=== PATIENT | male | born 1970 | race Asian ===

== ENCOUNTER 2021-12-06 00:34 | Observation (INO) | payer OTHER, SELFPAY ==
[2021-12-06] VITALS (10 sets, daily range): BP systolic 147–169; BP diastolic 88–111; PULSE 79–89; RESP 14–20; TEMP 30.6–36.4; O2SAT 95–98; BMI 29.1; BMI 29.0
--- NOTE | 2021-12-06 00:49 | DI.RAD.S_ITS ---
PROCEDURE: XR FOOT RT MIN 3V INDICATIONS: slip and fall, report bone was sticking out TECHNIQUE: 3 views of the foot were acquired. COMPARISON: [facility], CR, XR ANKLE RT MIN 3V, 12/06/2021, 1:08. FINDINGS: Bones: There are fractures of the distal tibia and fibula including articular extension of the tibial fractures and disruption of the ankle mortise. No fracture or dislocation in the foot. Soft tissues: There is periarticular soft tissue swelling at the ankle. IMPRESSION: 1. No fracture or dislocation in the foot. 2. Fractures of the distal tibia and fibula. Recommend correlation with concurrent study of the ankle. Dictated by: Andrade Camarena M.D. on 12/06/2021 at 1:27 Approved by: Andrade Camarena M.D. on 12/06/2021 at 1:29
--- NOTE | 2021-12-06 00:49 | DI.RAD.S_ITS ---
PROCEDURE: XR ANKLE RT MIN 3V INDICATIONS: slip and fall, report bone was sticking out TECHNIQUE: 3 views of the ankle were acquired. COMPARISON: None. FINDINGS: Bones: There is a mildly displaced fractures of the medial tibia through the base of the medial malleolus with associated involvement of the ankle mortise. There is irregularity of the posterior tibia distally which may also represent a posterior malleolus fracture. There is widening of the tibiotalar joint anteriorly. A mildly displaced spiral fracture of the distal fibular shaft is also present. Soft tissues: There is periarticular soft tissue swelling at the ankle. Achilles tendon appears intact. There are small calcifications inferior to the medial and lateral malleoli suggesting sequelae of prior avulsion injuries. IMPRESSION: 1. Intra-articular fractures of the distal tibia involving the medial and likely posterior malleoli with disruption of the ankle mortise. 2. Mildly displaced spiral fracture of the fibular shaft. Dictated by: Andrade Camarena M.D. on 12/06/2021 at 1:29 Approved by: Andrade Camarena M.D. on 12/06/2021 at 1:33
--- NOTE | 2021-12-06 01:05 | ED_ITS ---
HPI - Extremity Injury (Lower) General Chief Complaint: Extremity Injury, Lower Stated Complaint: POSSIBLE RT FOOT BROKEN Time Seen by Provider: 12/06/21 00:39 Mode of arrival: Ambulatory History of Present Illness HPI Narrative: 51-year-old male smoker without any significant or known chronic medical problems, takes no medications and has no allergies presents with a chief complaint of a work-related ankle injury. 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 He now has significant pain and obvious deformity to his ankle. He denies pain with palpation and attempts at ambulation. He denies any numbness, tingling or wea kness. He is otherwise well and free of complaint. He is Yoruba speaking and requires derrick boat leverman which has been used during triage and furthermore during his visit. He was brought by a friend Fermin ([phone]). He has no ability to go anywhere outside of the hospital, has no place to stay, no support and no ride. Furthermore he is unable to make it home to [place] Related Data Allergies Allergy/AdvReac Type Severity Reaction Status Date / Time No Known Drug Allergies Allergy Verified 12/06/21 01:18 Review of Systems Review of Systems Narrative: GENERAL: Denies chills, fatigue, malaise, fever, sweats. HEENT: Denies sinus pain, ear pain, sore throat, difficulty swallowing, dizziness. RESPIRATORY: Denies dyspnea, cough, wheezing, hemoptysis, sputum. CARDIOVASCULAR: Denies chest pain, palpitations, orthopnea, edema, GASTROINTESTINAL: Denies nausea, vomiting, abdominal pain, diarrhea, constipation, melena. : Denies dysuria, frequency, incontinence, hematuria, urinary retention. MUSCULOSKELETAL: See HPI SKIN: Denies rash, skin lesions, or other NEUROLOGIC: Denies weakness, headache, numbness, change in speech, confusion, seizures, incoordination. PSYCHIATRIC: No concerning psychosocial issues. 12 point review of systems is negative except for those stated above Patient History Social History Smoking Status: Current every day smoker Exam Narrative Exam Narrative: GENERAL: [51] year old patient appears stated age. Well-developed patient, in mild distress. HEAD: Atraumatic. Normocephalic. EYES: Pupils equal round and reactive. Extraocular motions intact. No scleral icterus. No injection or drainage. ENT: Nose without bleeding, purulent drainage. Throat without erythema, tonsillar hypertrophy or exudate. Airway patent. NECK: Trachea midline. Non tender CARDIOVASCULAR: Regular rate and rhythm without murmurs, gallops, or rubs. RESPIRATORY: Clear to auscultation. Breath sounds equal bilaterally. No wheezes, rales, or rhonchi. GASTROINTESTINAL: Abdomen soft, non-tender, nondistended. EXTREMITIES: Obvious deformity to the right ankle with pain and swelling, closed, isolated and neurovascularly intact BACK: Nontender without deformity or crepitance. No flank tenderness. NEURO: AOx3. SKIN: No rash or erythema of visible areas Initial Vital Signs Initial Vital Signs: Vital Signs Temperature 97.6 F 12/06/21 00:41 Pulse Rate 85 12/06/21 00:41 Respiratory Rate 14 12/06/21 00:41 Blood Pressure 169/103 H 12/06/21 00:41 Pulse Oximetry 98 12/06/21 00:41 Oxygen Delivery Method 12/06/21 00:41 Procedures Orthopedic Splinting/Casting Injury #1: Side: right Lower Extremity Injury Location: ankle Lower Extremity Immobilizer: posterior splint, stirrup splint and Duncan dressing Post splinting neuro exam: intact Post splinting vascular exam: intact Placed by: Nursing Course Orders Ordered: ED Orders 12/06/21 00:49 XR ankle RT min 3V Stat XR foot RT min 3V Stat 12/06/21 01:23 CT LE RT wo con Stat 12/06/21 04:30 COVID19 -Nasal RAPID/Pre-Proc Stat Complete Blood Count AUTO DIFF Stat Prothrombin Time INR Stat 12/06/21 04:34 Consult to FOUNDRY PATTERNMAKER - Wagon Driller Stat 12/06/21 05:02 Comprehensive Metabolic Panel Stat Sodium Chloride (Normal Saline 0.9%) 1,000 mls @ 125 mls/hr IV CONT SANDRA Discontinued Medications Hydrocodone Bitart/Acetaminophen (Hydrocodone/Acet 5/325 Prepack) 1 bottle MISC SEEINSTR ONE Stop: 12/06/21 01:13 Last Admin: 12/06/21 01:47 Dose: 1 bottle Documented By: MARGE Ondansetron HCl (Ondansetron 4 Mg Odt Prepack) 1 bottle MISC SEEINSTR ONE Stop: 12/06/21 01:13 Last Admin: 12/06/21 01:47 Dose: 1 bottle Documented By: KMW Consultations Consultation #1: Discussed with on-call orthopedist, given complexity of patient's presentation, will consult with patient in house but request patient be admitted to medicine for blood pressure management Vital Signs Vital signs: Vital Signs - 8 hr 12/06/21 00:41 Temperature 97.6 F Pulse Rate 85 Respiratory Rate 14 Blood Pressure 169/103 H Pulse Oximetry 98 Oxygen Delivery Method Room Air MDM - Extremity Injury (Lower) Lab Data Result diagrams: 12/06/21 04:30 12/06/21 05:02 Labs: Lab Results 12/06/21 12/06/21 12/06/21 Range/Units 04:30 04:30 04:30 WBC 12.8 H (4.5-11.0) X10^3/uL RBC 5.44 (4.5-5.9) X10^6/uL Hgb 16.8 (13.5-17.5) g/dL Hct 49.1 (41-53) % MCV 90.2 (80-100) fL MCH 30.9 (26-34) PG MCHC 34.3 (30-36) % RDW 13.2 (11.6-14.8) % Plt Count 223 (150-400) X10^3/uL Neut % (Auto) 75.0 (50-75) % Lymph % (Auto) 18.0 L (25-40) % Gilchrist % (Auto) 6.2 (3-14) % Eos % (Auto) 0.5 L (2-4) % Baso % (Auto) 0.3 (0-2) % Neut # (Auto) 9600 H (7672-4207) /uL Lymph # (Auto) 2300 (1746-6846) /uL Gilchrist # (Auto) 800 (0-900) /uL Eos # (Auto) 100 (0-450) /uL Baso # (Auto) 0 (0-100) /uL PT 11.5 (10.1-12.7) SECONDS INR 1.0 (0.9-1.3) Sodium (137-145) mmol/L Potassium (3.4-5.1) mmol/L Chloride (98-107) mmol/L Carbon Dioxide (22-32) mmol/L BUN (9-20) mg/dL Creatinine (0.66-1.25) mg/dL Estimated GFR (>60) mL/min BUN/Creatinine Ratio (6-22) Glucose (70-100) mg/dL Calcium (8.4-10.2) mg/dL Total Bilirubin (0.2-1.3) mg/dL AST (17-59) IU/L ALT (<50) IU/L Alkaline Phosphatase (38-126) U/L Total Protein (6.3-8.2) g/dL Albumin (3.5-5.0) g/dL Globulin (1.7-4.1) g/dL Albumin/Globulin Ratio (1.0-2.8) SARS-CoV-2 (PCR) Negative (Negative) 12/06/21 Range/Units 05:02 WBC (4.5-11.0) X10^3/uL RBC (4.5-5.9) X10^6/uL Hgb (13.5-17.5) g/dL Hct (41-53) % MCV (80-100) fL MCH (26-34) PG MCHC (30-36) % RDW (11.6-14.8) % Plt Count (150-400) X10^3/uL Neut % (Auto) (50-75) % Lymph % (Auto) (25-40) % Gilchrist % (Auto) (3-14) % Eos % (Auto) (2-4) % Baso % (Auto) (0-2) % Neut # (Auto) (9152-0145) /uL Lymph # (Auto) (0121-0092) /uL Gilchrist # (Auto) (0-900) /uL Eos # (Auto) (0-450) /uL Baso # (Auto) (0-100) /uL PT (10.1-12.7) SECONDS INR (0.9-1.3) Sodium 139 (137-145) mmol/L Potassium 4.1 (3.4-5.1) mmol/L Chloride 105 (98-107) mmol/L Carbon Dioxide 24 (22-32) mmol/L BUN 16 (9-20) mg/dL Creatinine 0.84 (0.66-1.25) mg/dL Estimated GFR > 60 (>60) mL/min BUN/Creatinine Ratio 19.0 (6-22) Glucose 116 H (70-100) mg/dL Calcium 9.0 (8.4-10.2) mg/dL Total Bilirubin 0.7 (0.2-1.3) mg/dL AST 33 (17-59) IU/L ALT 32 (<50) IU/L Alkaline Phosphatase 49 (38-126) U/L Total Protein 7.7 (6.3-8.2) g/dL Albumin 4.5 (3.5-5.0) g/dL Globulin 3.2 (1.7-4.1) g/dL Albumin/Globulin Ratio 1.4 (1.0-2.8) SARS-CoV-2 (PCR) (Negative) Imaging Data Extremity x-ray #1: Radiologist's Impression: [address] [address] XRay Report Signed Patient: SHANTE LONGOH MR#: [id number] : 1970 Acct:[id number] Age/Sex: 51 / M Date of Service: 12/06/21 Loc: ED Accession Number: [id number] ?? Procedure: XR ankle RT min 3V Ordering Provider: Jovan Hernandez D.O. PROCEDURE:? XR ANKLE RT MIN 3V ? INDICATIONS:? slip and fall, report bone was sticking out ? TECHNIQUE:? 3 views of the ankle were acquired.? ? COMPARISON:? None. ? FINDINGS:? ? Bones:? There is a mildly displaced fractures of the medial tibia through the base of the medial malleolus with associated involvement of the ankle mortise.? There is irregularity of the posterior tibia distally which may also represent a posterior malleolus fracture.? There is widening of the tibiotalar joint anteriorly.? A mildly displaced spiral fracture of the distal fibular shaft is also present. ? Soft tissues:? There is periarticular soft tissue swelling at the ankle.? Achilles tendon appears intact.? There are small calcifications inferior to the medial and lateral malleoli suggesting sequelae of prior avulsion injuries.? ? ? IMPRESSION:? ? 1. Intra-articular fractures of the distal tibia involving the medial and likely posterior malleoli with disruption of the ankle mortise. ? 2. Mildly displaced spiral fracture of the fibular shaft. ? Dictated by: Andrade Camarena M.D. on 12/06/2021 at 1:29 ? ? Approved by: Andrade Camarena M.D. on 12/06/2021 at 1:33 ? CT LE: Radiologist's Impression: Close Lower Extremity CT (Signed) Andrade Camarena - 12/06/21 Foot X-Ray (Signed) Andrade Camarena - 12/06/21 Ankle X-Ray (Signed) Andrade Camarena - 12/06/21 Launch?[place] [address] CT Scan Report Signed Patient: SHANTE LONGO MR#: [id number] : 1970 Acct:[id number] Age/Sex: 51 / M Date of Service: 12/06/21 Loc: ED Accession Number: [id number] ?? Procedure: CT LE RT wo con Ordering Provider: Jovan Hernandez D.O. PROCEDURE:? CT LE RT WO CON ? INDICATIONS:? obvious deformity ? TECHNIQUE:? Noncontrast 3 mm axial sections acquired from above the hip with to the bottom of the calcaneus, with coronal and sagittal reformats.? ? COMPARISON:? [facility]ed [facility], CR, XR ANKLE RT MIN 3V, 12/06/2021, 1:08. ? FINDINGS:? Image quality:? Excellent.? ? Bones:? There are fractures of the medial and posterior malleoli of the distal tibia with associated disruption of the ankle mortise.? There is slight lateral and posterior subluxation of the tibiotalar joint.? A mildly displaced spiral fracture of the distal fibular shaft is redemonstrated.? Widening of the distal tibiofibular syndesmosis is also noted.? There is a linear fracture fragment anterolaterally in the tibiotalar joint measuring up to approximately 1.0 cm.? There are small ossicles inferior to the medial and lateral malleoli consistent with small avulsion fractures of indeterminate acuity.? The remainder of the visualized right lower extremity appears intact. ? Soft tissues:? There is periarticular soft tissue swelling around the ankle with subcutaneous edema.? A tibiotalar joint effusion is present.? The visualized flexor, extensor, peroneal, and Achilles tendons appear intact. ? IMPRESSION:? ? 1. Fractures of the medial and posterior malleoli of the distal tibia with disruption of the ankle mortise and slight lateral posterior subluxation of the tibiotalar joint. ? 2. Mildly displaced spiral fracture of the distal fibular shaft. ? 3. Widening of the distal tibial fibular syndesmosis. ? 4. Linear fracture fragment anterolaterally in the tibiotalar joint.? ? Dictated by: Andrade Camarena M.D. on 12/06/2021 at 1:54 ? ? Approved by: Andrade Camarena M.D. on 12/06/2021 at 2:01 ? Discharge Plan Departure Patient Disposition: Admitted As Inpatient Clinical Impression: Closed trimalleolar fracture of ankle, Blood pressure elevated without history of HTN Admit Date/Time: 12/06/21 05:10 Admit Provider: Sharyn Sanchez
--- NOTE | 2021-12-06 01:23 | DI.CT.S_ITS ---
PROCEDURE: CT LE RT WO CON INDICATIONS: obvious deformity TECHNIQUE: Noncontrast 3 mm axial sections acquired from above the hip with to the bottom of the calcaneus, with coronal and sagittal reformats. COMPARISON: [facility], CR, XR ANKLE RT MIN 3V, 12/06/2021, 1:08. FINDINGS: Image quality: Excellent. Bones: There are fractures of the medial and posterior malleoli of the distal tibia with associated disruption of the ankle mortise. There is slight lateral and posterior subluxation of the tibiotalar joint. A mildly displaced spiral fracture of the distal fibular shaft is redemonstrated. Widening of the distal tibiofibular syndesmosis is also noted. There is a linear fracture fragment anterolaterally in the tibiotalar joint measuring up to approximately 1.0 cm. There are small ossicles inferior to the medial and lateral malleoli consistent with small avulsion fractures of indeterminate acuity. The remainder of the visualized right lower extremity appears intact. Soft tissues: There is periarticular soft tissue swelling around the ankle with subcutaneous edema. A tibiotalar joint effusion is present. The visualized flexor, extensor, peroneal, and Achilles tendons appear intact. IMPRESSION: 1. Fractures of the medial and posterior malleoli of the distal tibia with disruption of the ankle mortise and slight lateral posterior subluxation of the tibiotalar joint. 2. Mildly displaced spiral fracture of the distal fibular shaft. 3. Widening of the distal tibial fibular syndesmosis. 4. Linear fracture fragment anterolaterally in the tibiotalar joint. Dictated by: Andrade Camarena M.D. on 12/06/2021 at 1:54 Approved by: Andrade Camarena M.D. on 12/06/2021 at 2:01
--- NOTE | 2021-12-06 01:24 | PC.NURSE ---
Triage/initial assessment assisted by language line retirement manager [id number]
[2021-12-06] MEDS: HYDROCODONE/ACET 5/325 PREPACK 1 BOTTLE MISC (01:47)
[2021-12-06] MEDS: ONDANSETRON 4 MG ODT PREPACK 1 BOTTLE MISC (01:47)
[2021-12-06 04:52] LABS: Add Manual Diff / Slide Review NO; Basophils Absolute Auto 0 /uL (0-100); Basophils Percent Auto 0.3 % (0-2); Eosinophils Absolute Auto 100 /uL (0-450); Eosinophils Percent Auto 0.5 % (2-4); Hematocrit 49.1 % (41-53); Hemoglobin 16.8 g/dL (13.5-17.5); Lymphocytes Absolute Auto 2300 /uL (1100-4500); Mean Corpuscular HGB Conc 34.3 % (30-36); Mean Corpuscular Hemoglobin 30.9 PG (26-34); Mean Corpuscular Volume 90.2 fL (80-100); Monocytes Absolute Auto 800 /uL (0-900); Monocytes Percent Auto 6.2 % (3-14); Neutrophils Absolute Auto 9600 /uL (1500-7000); Platelet Count 223 X10^3/uL (150-400); Red Blood Cell Count 5.44 X10^6/uL (4.5-5.9); Red Cell Distribution Width 13.2 % (11.6-14.8); White Blood Cell Count 12.8 X10^3/uL (4.5-11.0)
[2021-12-06 04:53] LABS: Prothrombin Time 11.5 SECONDS (10.1-12.7)
--- NOTE | 2021-12-06 04:58 | P.CONS_ITS ---
History of Present Illness Consult details Chief complaint: POSSIBLE RT FOOT BROKEN Reason for consult: right ankle fracture Requesting provider: Jovan Hernandez Narrative: 51 yo M hx, Austrian speaking male. 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 Austrian livestock dealer used. No family/ contacts in area, lives/works [place]. This is a [place] compensation industrial injury. found to have displaced R trimal ankle fx. unable to be safely discharged. Complex social situation as detailed in ER note. admitted to Internal medicine for HTN and will require case management help to sort of next steps, options for local treatment vs transport home to [place]. splinted by ER, xR and CT scan completed-- trimal ankle fx Meds Home Medications and Allergies Home Medications Medication Instructions Recorded Confirmed Type acetaminophen 500 mg tablet 650 mg PO Q6HR pain 12/06/21 12/06/21 History (Acetaminophen Pain Relief) enoxaparin 40 mg/0.4 mL 40 mg (0.4 mL) SUBCUT DAILY 10 12/06/21 Rx subcutaneous syringe (Lovenox) days #4 mL hydrocodone 10 mg-acetaminophen 1 tab PO Q4HR PRN Pain, Severe 12/06/21 Rx 325 mg tablet (7-10) #30 tabs Allergies Allergy/AdvReac Type Severity Reaction Status Date / Time No Known Drug Allergies Allergy Verified 12/06/21 01:18 Exam Vital Signs (past 8 hours): - 12/06/21 00:41 Temperature 97.6 F Pulse Rate 85 Respiratory Rate 14 Blood Pressure 169/103 H Pulse Oximetry 98 Oxygen Delivery Method Room Air Oxygen Delivery Method Room Air Objective Imaging ct scan ankle: My impression: displaced trimal ankle fractrue Radiologist's impression: IMPRESSION:? ? 1. Fractures of the medial and posterior malleoli of the distal tibia with disruption of the ankle mortise and slight lateral posterior subluxation of the tibiotalar joint. ? 2. Mildly displaced spiral fracture of the distal fibular shaft. ? 3. Widening of the distal tibial fibular syndesmosis. ? 4. Linear fracture fragment anterolaterally in the tibiotalar joint.? ? Dictated by: Andrade Camarena M.D. on 12/06/2021 at 1:54 Labs Result Diagrams: 12/06/21 04:30 12/06/21 05:02 Labs: Laboratory Results - last 24 hr 12/06/21 12/06/21 04:30 04:30 WBC 12.8 H RBC 5.44 Hgb 16.8 Hct 49.1 MCV 90.2 MCH 30.9 MCHC 34.3 RDW 13.2 Plt Count 223 Neut % (Auto) 75.0 Lymph % (Auto) 18.0 L [place] % (Auto) 6.2 Eos % (Auto) 0.5 L Baso % (Auto) 0.3 Neut # (Auto) 9600 H Lymph # (Auto) 2300 [place] # (Auto) 800 Eos # (Auto) 100 Baso # (Auto) 0 PT 11.5 INR 1.0 PFSH Medical History (Updated 12/06/21 @ 06:41 by [facility]) Tobacco abuse Surgical History H/O hand surgery Tobacco & Substance Use Smoking Status: Current every day smoker Assessment & Plan Assessment and plan (1) Closed trimalleolar fracture of ankle: Status: Acute Plan right trimalleolar ankle fracture. 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 He is Austrian speaking. does not live locally, no family or friends in area. requires admission for severe ankle fracture and complex social situation--out of state-and no caregivers available. He will need help with care management to sort out contacting the employer and starting [place] workers compensation claim. right ankle will need surgery. this can be done best in the next 2 weeks and can be done in [place] or back in [place] if the [place] workers compensation/employers insurance arranges travel. Patient will be nonweightbearing? on the right ankle. Regardless of if surgery is in [place], this patient will need care (help) and transport back home to [place] (before or after a surgery). He will need to be toe touchdown weightbearing for approx 6 weeks after a surgery and cannot drive during that time.? once we know more about the social situation- and options for return to [place] can discuss if preference for surgery in [place] vs [place]. --if surgery in [place] -- then will need to find an orthopedic surgeon in [place] to follow locally with. --UPdated by Dr. Mandel-- family to drive [facility] back to [place] for care-- recommending SQ lovenox for DVT prophylaxis. Pt will need to see orthopedic surgeon in [place] for surgical fixation of his ankle fracture. COVID-19 COVID-19 status: Negative Time Spent With Patient Time with patient: less than 30 minutes Critical Care time: I spent a total of [] minutes of critical care time on this patient's care today; this time is exclusive of procedural time.
[2021-12-06 05:27] LABS: Alanine Aminotransferase 32 IU/L (<50); Albumin 4.5 g/dL (3.5-5.0); Albumin Globulin Ratio 1.4 (1.0-2.8); Alkaline Phosphatase 49 U/L (38-126); Aspartate Aminotransferase 33 IU/L (17-59); Bilirubin Total 0.7 mg/dL (0.2-1.3); Blood Urea Nitrogen 16 mg/dL (9-20); Carbon Dioxide 24 mmol/L (22-32); Chloride 105 mmol/L (98-107); Estimated Glomerular Filt Rate > 60 mL/min (>60); Globulin 3.2 g/dL (1.7-4.1); Glucose 116 mg/dL (70-100); HEMOLYSIS < 15 (0-50); Potassium 4.1 mmol/L (3.4-5.1); Sodium 139 mmol/L (137-145); Total Protein 7.7 g/dL (6.3-8.2)
[2021-12-06 05:42] LABS: COVID19 -Nasal RAPID Negative (Negative)
[2021-12-06] MEDS: ONDANSETRON 4 MG ODT PO (06:24)
[2021-12-06] MEDS: ACETAMINOPHEN 325 MG TABLET 650 MG PO (06:24)
[2021-12-06] MEDS: KETOROLAC 30 MG/ML VIAL IV (06:24)
[2021-12-06] MEDS: HYDROMORPHONE 0.5 MG INJ IV (06:26)
[2021-12-06 06:29] LABS: NT-proBNP (BNP-Adult 18+) 20 pg/mL (<125)
[2021-12-06] MEDS: SODIUM CHLORIDE 0.9% 1,000 ML 75 ML IV (06:29)
--- NOTE | 2021-12-06 06:31 | P.HP_ITS ---
History of Present Illness History of Present Illness Date Patient Seen: 12/06/21 Time Patient Seen: 06:04 Chief complaint: POSSIBLE RT FOOT BROKEN Narrative: Addy Fatima is a 51-year-old male smoker without any significant or known chronic medical problems, takes no medications and has no allergies presents with a chief complaint of a work-related ankle injury.? 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 He now has significant pain and obvious deformity to his ankle.? He denies pain with palpation and attempts at ambulation.? He denies any numbness, tingling or weakness.? He is otherwise well and free of complaint.? He is Malaysian speaking and requires water service supervisor which has been used during triage and furthermore during his visit.? He was brought by a friend Fermin ([phone]).? He has no ability to go anywhere outside of the hospital, has no place to stay, no support and no ride.? Furthermore he is unable to make it home to [place]. Patient states that he has no medical history, takes no medications, no family history, no prior surgeries. Patient denies chest pain, shortness of breath, abdominal pain, nausea, vomiting, diarrhea, chills, fever, upper respiratory symptoms, COVID infection, head injury or trauma. Patient is having significant right lower extremity pain. Upon admit patient is afebrile temp 97.6, hypertensive urgency BP 169/103, HR 85, O2 saturation 98% on room air. Id WBC 12.8 with a left shift neutrophils 9600, the rest of patient's CBC and CMP are unremarkable. Patient's x-rays of lower extremity right foot and right ankle demonstrate a right trimalleolar ankle fracture with distal fibula fracture. Patient to be admitted for right lower extremity fractures, and hypertensive urgency without the diagnosis of hypertension. Patient History Medical History (Updated 12/06/21 @ 06:41 by BRIAN Gauthier) Tobacco abuse Surgical History H/O hand surgery Family & Social History Safety & Behavioral: Feels Safe in Current Yes Environment Tobacco & Substance use: Smoking Status Current every day smoker alcohol intake frequency 0-2 drinks per day Substance Use Type does not use Meds Home Medications and Allergies Allergies Allergy/AdvReac Type Severity Reaction Status Date / Time No Known Drug Allergies Allergy Verified 12/06/21 01:18 Review of Systems Review of Systems Narrative: All 12 point systems reviewed with the patient and are negative except otherwise documented. Exam Vital Signs (past 8 hours): - 12/06/21 00:41 12/06/21 06:04 12/06/21 06:07 Temperature 97.6 F 97.5 F L Pulse Rate 85 81 Respiratory Rate 14 20 Blood Pressure 169/103 H 169/91 H 169/111 H Pulse Oximetry 98 96 Oxygen Delivery Method Room Air Oxygen Delivery Method Room Air Narrative Exam Narrative: GENERAL: [51] year old patient appears stated age. Well-developed patient, in mild distress. HEAD: Atraumatic. Normocephalic. EYES: Pupils equal round and reactive. Extraocular motions intact. No scleral icterus. No injection or drainage. ENT: Nose without bleeding, purulent drainage. Throat without erythema, tonsillar hypertrophy or exudate. Airway patent. NECK: Trachea midline. Non tender CARDIOVASCULAR: Regular rate and rhythm without murmurs, gallops, or rubs. RESPIRATORY: Clear to auscultation. Breath sounds equal bilaterally. No wheezes, rales, or rhonchi.? GASTROINTESTINAL: Abdomen soft, non-tender, nondistended. EXTREMITIES:? Obvious deformity to the right ankle with pain and swelling, closed, isolated and neurovascularly intact BACK: Nontender without deformity or crepitance. No flank tenderness. NEURO: AOx3. SKIN: No rash or erythema of visible areas Objective Labs Result Diagrams: 12/06/21 04:30 12/06/21 05:02 Labs: Laboratory Results - last 24 hr 12/06/21 12/06/21 12/06/21 04:30 04:30 04:30 WBC 12.8 H RBC 5.44 Hgb 16.8 Hct 49.1 MCV 90.2 MCH 30.9 MCHC 34.3 RDW 13.2 Plt Count 223 Neut % (Auto) 75.0 Lymph % (Auto) 18.0 L [place] % (Auto) 6.2 Eos % (Auto) 0.5 L Baso % (Auto) 0.3 Neut # (Auto) 9600 H Lymph # (Auto) 2300 [place] # (Auto) 800 Eos # (Auto) 100 Baso # (Auto) 0 PT 11.5 INR 1.0 Sodium Potassium Chloride Carbon Dioxide BUN Creatinine Estimated GFR BUN/Creatinine Ratio Glucose Calcium Total Bilirubin AST ALT Alkaline Phosphatase NT-Pro-B Natriuret Pep Total Protein Albumin Globulin Albumin/Globulin Ratio SARS-CoV-2 (PCR) Negative 12/06/21 12/06/21 05:02 05:48 WBC RBC Hgb Hct MCV MCH MCHC RDW Plt Count Neut % (Auto) Lymph % (Auto) [place] % (Auto) Eos % (Auto) Baso % (Auto) Neut # (Auto) Lymph # (Auto) [place] # (Auto) Eos # (Auto) Baso # (Auto) PT INR Sodium 139 Potassium 4.1 Chloride 105 Carbon Dioxide 24 BUN 16 Creatinine 0.84 Estimated GFR > 60 BUN/Creatinine Ratio 19.0 Glucose 116 H Calcium 9.0 Total Bilirubin 0.7 AST 33 ALT 32 Alkaline Phosphatase 49 NT-Pro-B Natriuret Pep 20 Total Protein 7.7 Albumin 4.5 Globulin 3.2 Albumin/Globulin Ratio 1.4 SARS-CoV-2 (PCR) Assessment & Plan Assessment & Plan narrative: Addy Fatima is a 51-year-old male smoker without any significant or known chronic medical problems, takes no medications and has no allergies, He is Malaysian speaking and requires water service supervisor during his visit.? He was brought by a friend Fermin ([phone]).? He has no ability to go anywhere outside of the hospital, has no place to stay, no support and no ride.? Furthermore he is unable to make it home to [place]. 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 Today's goal is for social work and SPECIALIST MANAGERS to determine if the patient can be seen and treated here surgically or needs to be return to [place] and the logistics required. Dr. Antony is consulting and will perf orm the surgery here if it is deemed appropriate. 1.Right trimalleolar ankle fracture, acute, present on admission -to be managed by Dr. Worrell -patient requires intensive social work and SPECIALIST MANAGERS consult see Dr. Worrell ease notes regarding complications Per Dr. Lopez: right trimalleolar ankle fracture. 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 He is Malaysian speaking. does not live locally, no family or friends in area. requires admission for severe ankle fracture and complex social situation--out of state-and no caregivers available. He will need help with care management to sort out contacting the employer and starting [place] workers compensation claim. right ankle will need surgery. this can be done best in the next 2 weeks and can be done in [place] or back in [place] if the [place] workers compensation/employers insurance arranges travel. Patient will be nonweightbearing? on the right ankle. Regardless of if surgery is in [place], this patietn will need care (help) and transport back home to [place] (before or after a surgery). He will need to be toe touchdown weightbearing for approx 6 weeks after a surgery and cannot drive during that time.? once we know more about the social situation- and options for return to [place] can discuss if preference for surgery in [place] vs [place]. --if surgery in [place] -- then will need to find an orthopedic surgeon in [place] to follow locally with. -ordered SPECIALIST MANAGERS and social Service consult -pain management, elevate extremity, ice prn, splint applied in ED 2. Hypertensive urgency without the diagnosis of hypertension, acute, present on admission -hypertension likely secondary to injury and tobacco abuse -will initiate lisinopril 10 mg-and evaluate response 3. Overweight as evidence by BMI of 29, acute on chronic, present on admission -dietary consult to be considered for nutritional and lifestyle weight loss consultation 4. Tobacco abuse, acute on chronic, present on admission -patient education regarding tobacco cessation Code status:Full Surrogate decision maker: Spouse Kenn HERNANDEZ PCR:Negative DVT/VTE prophylaxis: Lovenox and SCD on left only Disposition: I have utilized all available immediate resources to obtain, update, or review the patient's current medications. Phone water service supervisor was used during admit interview. I confirmed that the patient's advanced care plan is present, Code status is documented and/or surrogate decision maker is listed in the patient's medical record. Time Spent With Patient Critical Care time: I spent a total of [] minutes of critical care time on this patient's care today; this time is exclusive of procedural time.
[2021-12-06] MEDS: HYDROCODONE/ACET 10/325 TABLET 1 TAB PO (07:40)
--- NOTE | 2021-12-06 09:00 | DI.RAD.S_ITS ---
PROCEDURE: XR CHEST 1V INDICATIONS: r/o infection-cardiopulmonary process TECHNIQUE: One view of the chest was acquired. COMPARISON: None. FINDINGS: Surgical changes and devices: None. Lungs and pleura: Lungs are clear. No pleural effusions or pneumothorax. Mediastinum: Mediastinal contours appear normal. Heart size is normal. Bones and chest wall: No suspicious bony lesions. Overlying soft tissues appear unremarkable. IMPRESSION: No acute cardiopulmonary disease process. Dictated by: Fay Santamaria MD, PhD on 12/06/2021 at 9:06 Approved by: Fay Santamaria MD, PhD on 12/06/2021 at 9:06
[2021-12-06] MEDS: lisinopriL 10 MG TABLET PO (10:17)
[2021-12-06] MEDS: ENOXAPARIN 40 MG/0.4 ML SYRINGE SUBCUT (10:18)
--- NOTE | 2021-12-06 11:43 | P.DS_ITS ---
History of Present Illness History of Present Illness Chief complaint: POSSIBLE RT FOOT BROKEN Narrative: Addy Fatima is a 51-year-old male smoker without any significant or known chronic medical problems, takes no medications and has no allergies presents with a chief complaint of a work-related ankle injury.? 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 He now has significant pain and obvious deformity to his ankle.? He denies pain with palpation and attempts at ambulation.? He denies any numbness, tingling or weakness.? He is otherwise well and free of complaint.? He is Puerto [place]ican speaking and requires hydraulic press in operator which has been used during triage and furthermore during his visit.? He was brought by a friend Fermin ([phone]).? He has no ability to go anywhere outside of the hospital, has no place to stay, no support and no ride.? Furthermore he is unable to make it home to [place].? Patient states that he has no medical history, takes no medications, no family history, no prior surgeries.? Patient denies chest pain, shortness of breath, abdominal pain, nausea, vomiting, diarrhea, chills, fever, upper respiratory symptoms, COVID infection, head injury or trauma.? Patient is having significant right lower extremity pain. ? Upon admit patient is afebrile temp 97.6, hypertensive urgency BP 169/103, HR 85, O2 saturation 98% on room air.? Id WBC 12.8 with a left shift neutrophils 9600, the rest of patient's CBC and CMP are unremarkable.? Patient's x-rays of lower extremity right foot and right ankle demonstrate a right trimalleolar ankle fracture with distal fibula fracture.? Patient to be admitted for right lower extremity fractures, and hypertensive urgency without the diagnosis of hypertension. Discharge Providers Provider Date of admission: 12/06/21 05:10 Discharge Date: 12/06/21 Consults: 12/06/21 04:34 Consult to IMPORT CLERK - Bed Placement Coordinator Stat Comment: 12/06/21 05:54 Consult to Dietitian, Adult Routine Comment: Reason For Exam: BMI 29.1 12/06/21 05:56 Consult to Bed Placement Coordinator Routine Comment: non-venezuelan speaking, [place] 12/06/21 05:58 Consult to IMPORT CLERK - Bed Placement Coordinator Routine Comment: needs surg, can it be done here or in [place]? 12/06/21 07:56 Consult to Orthopedic Surgery Routine Comment: Consulting Provider: Dianne West Reason for consultation: ankle fracture Has provider been notified: Yes 12/06/21 11:28 Consult to Physical Therapy Evaluate & Treat Comment: Physician Instructions: Evaluate and Treat 12/06/21 11:33 Consult to Physical Therapy Evaluate & Treat Comment: Patient returning to [place] this evening. Physician Instructions: Evaluate and Treat Discharge provider: Demarco Mandel DO Summary Hospital Course Discharge Diagnosis: 1. For right ankle fracture. Right trimalleolar ankle fracture, acute, present on admission 2. Hypertensive urgency without the diagnosis of hypertension, acute, present on admission 3. Overweight as evidence by BMI of 29, acute on chronic, present on admission 4. Tobacco abuse, acute on chronic, present on admission Hospital Course: Addy Fatima is a 51-year-old male smoker without any significant or known chronic medical problems, takes no medications and has no allergies, He is Puerto Rican speaking and requires hydraulic press in operator during his visit.? He was brought by a friend Fermin ([phone]) for right ankle fracture. Ortho evaluated and recommended surgery however given patient's insurance is in [place] where he lives his family elected to come pick him up and drive him back to [place] for the surgery. He was discharged with oral pain medication and Lovenox injections for 10 days. They recommended nonweightbearing on the right leg. Patient already has crutches and will use them. A family member picked him up on 12/06 and will be driving him back to [facility]. Exam Vital Signs (past 8 hours): - 12/06/21 05:39 12/06/21 05:57 12/06/21 06:04 Temperature 97.5 F L Pulse Rate 81 Respiratory Rate 20 Blood Pressure 169/91 H Pulse Oximetry 96 96 Oxygen Delivery Method Room Air Room Air Oxygen Flow Rate 12/06/21 06:07 12/06/21 08:24 12/06/21 10:17 Temperature 97.5 F L Pulse Rate 89 Respiratory Rate 18 Blood Pressure 169/111 H 156/100 H 156/100 H Pulse Oximetry 95 Oxygen Delivery Method Oxygen Flow Rate 0 12/06/21 09:39 Temperature Pulse Rate Respiratory Rate Blood Pressure Pulse Oximetry 98 Oxygen Delivery Method Room Air Oxygen Flow Rate Oxygen Delivery Method Room Air Oxygen Flow Rate 0 Narrative Exam Narrative: GENERAL: [51] year old patient appears stated age. Well-developed patient, in mild distress. HEAD: Atraumatic. Normocephalic. EYES: Pupils equal round and reactive. Extraocular motions intact. No scleral icterus. No injection or drainage. ENT: Nose without bleeding, purulent drainage. Throat without erythema, t onsillar hypertrophy or exudate. Airway patent. NECK: Trachea midline. Non tender CARDIOVASCULAR: Regular rate and rhythm without murmurs, gallops, or rubs. RESPIRATORY: Clear to auscultation. Breath sounds equal bilaterally. No wheezes, rales, or rhonchi.? GASTROINTESTINAL: Abdomen soft, non-tender, nondistended. EXTREMITIES:? Obvious deformity to the right ankle with pain and swelling, closed, isolated and neurovascularly intact BACK: Nontender without deformity or crepitance. No flank tenderness. NEURO: AOx3. SKIN: No rash or erythema of visible areas Objective Labs Result Diagrams: 12/06/21 04:30 12/06/21 05:02 Labs: Laboratory Results - last 24 hr 12/06/21 12/06/21 12/06/21 04:30 04:30 04:30 WBC 12.8 H RBC 5.44 Hgb 16.8 Hct 49.1 MCV 90.2 MCH 30.9 MCHC 34.3 RDW 13.2 Plt Count 223 Neut % (Auto) 75.0 Lymph % (Auto) 18.0 L [place] % (Auto) 6.2 Eos % (Auto) 0.5 L Baso % (Auto) 0.3 Neut # (Auto) 9600 H Lymph # (Auto) 2300 [place] # (Auto) 800 Eos # (Auto) 100 Baso # (Auto) 0 PT 11.5 INR 1.0 Sodium Potassium Chloride Carbon Dioxide BUN Creatinine Estimated GFR BUN/Creatinine Ratio Glucose Calcium Total Bilirubin AST ALT Alkaline Phosphatase NT-Pro-B Natriuret Pep Total Protein Albumin Globulin Albumin/Globulin Ratio SARS-CoV-2 (PCR) Negative 12/06/21 12/06/21 05:02 05:48 WBC RBC Hgb Hct MCV MCH MCHC RDW Plt Count Neut % (Auto) Lymph % (Auto) [place] % (Auto) Eos % (Auto) Baso % (Auto) Neut # (Auto) Lymph # (Auto) [place] # (Auto) Eos # (Auto) Baso # (Auto) PT INR Sodium 139 Potassium 4.1 Chloride 105 Carbon Dioxide 24 BUN 16 Creatinine 0.84 Estimated GFR > 60 BUN/Creatinine Ratio 19.0 Glucose 116 H Calcium 9.0 Total Bilirubin 0.7 AST 33 ALT 32 Alkaline Phosphatase 49 NT-Pro-B Natriuret Pep 20 Total Protein 7.7 Albumin 4.5 Globulin 3.2 Albumin/Globulin Ratio 1.4 SARS-CoV-2 (PCR) [facility] Medical History (Updated 12/06/21 @ 06:41 by Sharyn Sanchez [facility]) Tobacco abuse Surgical History H/O hand surgery Social History household members: spouse and children Smoking Status: Current every day smoker alcohol intake: current Discharge Plan Discharge Plan Patient Disposition: Home Provider Discharge Comment: You sustained an ankle fracture which will need surgery within 2 weeks according to our orthopedic doctors who evaluated you. Your family is electing to bring you home to [place] for this so I have sent you with pain medication in the meantime. You will need to be non-weightbearing on your right leg meaning using crutches at all times when walking. Ortho also is recommending you be on a blood thinner called lovenox for 10 days to prevent a possible clot in your leg so you will give yourself an injection of the medication once daily for 10 days. Discharge orders & Medications Prescriptions: New hydrocodone-acetaminophen 10-325 mg Tablet 1 tab PO Q4HR PRN (Reason: Pain, Severe (7-10)) Qty: 30 0RF enoxaparin [Lovenox] 40 mg/0.4 mL syringe 40 mg SUBCUT DAILY 10 Days Qty: 4 0RF Continued acetaminophen [Acetaminophen Pain Relief] 500 mg tablet 650 mg PO Q6HR Visit Report/Discharge Packet Instructions: DI for Prescription Opioid Use Discharge Data Attending Provider: Sharyn Sanchez Quality VTE Deep Vein Thrombosis/Pulmonary Embolism Present on Admission: No
--- NOTE | 2021-12-06 13:15 | PT.IIE ---
Surgery Performed Operation Date: 12/09/21 14:15 <No data on this case meets the specified criteria> Surgical History (Last Reviewed 12/06/21 @ 07:40 by BRIAN Gauthier) H/O hand surgery Medical History (Last Updated 12/06/21 @ 06:41 by BRIAN Gauthier) Tobacco abuse Physical Therapy Inpatient Evaluation/Re-Eval M1 PT/OT-IP Prior Functional Status Start: 12/06/21 15:10 Freq: NEEDED Status: Active Protocol: Document 12/06/21 13:15 AB (Rec: 12/06/21 15:43 AB [email or web address]) Medical Review Prior Functional Status Medical History Reviewed Yes Communication able to make needs known; Gambian speaking but able to communicate in Omani but with difficulty Mobility and Gait pt is independent with all mobilities and ambulation without AD Prior Functional Level (Other details) 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 pt plans to go back to [place] and have surgery in [facility]. Pt stated that his boss will be coming to pick him up. Pt will need to be able to get into an 18 foster truck and his boss will drive him back to [place] where he will go directly to another hospital. Social History Household Members spouse,children Living Arrangements House Number of Stairs To Enter/Railing? no home set up as pt will go directly to a hospital has 2 steps to get into the truck Additional Social History Comment works as a truck driver teamster M2 PT-IP Current Condition Start: 12/06/21 15:10 Freq: NEEDED Status: Active Protocol: Document 12/06/21 13:15 AB (Rec: 12/06/21 15:43 AB [id number]) Physical Therapy Current Condition Current Condition Evaluation Date 12/06/21 Treatment Diagnosis R trimalleolar fx; difficulty in walking Onset Date 12/06/21 M3 PT-IP Subjective Start: 12/06/21 15:10 Freq: NEEDED Status: Active Protocol: Document 12/06/21 13:15 AB (Rec: 12/06/21 15:43 AB [id number]) Subjective Physical Therapy Visit Type Type Initial Evaluation Visit Start Time 13:15 Visit Stop Time 14:01 Total Visit Minutes 46 Number of CONDEMNATION ENGINEER Visits 0 Physical Therapy Visit Comments Patient Comments agreeable to do PT M4 PT-IP Mobility and Gait Start: 12/06/21 15:10 Freq: NEEDED Status: Active Protocol: Document 12/06/21 13:15 AB (Rec: 12/06/21 15:43 AB [id number]) PT-Bed Mobility Assessment Supine to Sit Supine to Sit Standby Assistance Sit to Supine Sit to Supine Standby Assistance PT-Transfer Assessment Sit to and From Stand Sit to and from Stand Standby Assistance,Contact Guard Assistance,1 Person Assistance,Use of Upper Extremities Equipment Transfer Assistive Device Gait Belt,Axillary Crutches Orthotic/Prosthetic Devices or Brace: Yes Comments Mobility Comments educated pt on weight bearing restriction. pt has axillary crutches in room from ER. completed supine to sit SBA. sit to stand SBA to CGA and ambulated in room ~ 15 ft. unsteady gait. instructed to sit down. adjusted crutches. Assessed ambulation again and educated on safety for steadiness. completed ambulation in room ~ 30 ft using axillary crutches SBA to CGA. cued for safety especially during turns. pt can be impulsive. pt has 2 steps to get into the truck. reminded pt regarding NWB on RLE and difficulty climbing up steps. pt stated that he can do it and that there are people that can assist him. educated on up/down step stool using crutches. pt completed min A and max cues. completed x 2 sets. informed pt regarding safety and difficulty climbing up 2 elevated steps to get into the truck. Pt agreed. informed pt that he has to sit on first step if possible to scoot up towards 2nd step to get into the truck. pt agreed. Left pt on the bed. call light and table placed within reach. informed case investigator regarding getting into the truck. case investigator stated that 's boss will not come in to pick pt up until 7-8pm tonight. talked with nurse and informed regarding technique to get into the truck to communicate to pt's boss. nurse understood. Gait Assessment Gait Gait Assistance Required: Standby Assistance,Contact Guard Assist Distance (Feet) 30 Able to Maintain Weight Bearing Status Yes During Gait Assistive Devices Assistive Device Gait Belt,Axillary Crutches Orthotic/Prosthetic Devices or Brace: Yes Gait Deviations General Gait Pattern Decreased Feet Clearance Factors Limiting Gait Function Factors Limiting Gait Function Decreased Activity Tolerance, Decreased Strength,Difficulty Following Directions,Limited Range of Motion,Pain,Poor Balance,Poor Safety Awareness Stair Climbing Assessment Devices Stair Climbing Assistive Devices Axillary Crutches Technique/Endurance Stair Climbing Direction Ascend and Descend Stair Climbing Technique Step to Step Number of Steps Climbed 1 Query Text: Stair Climbing Set # Repetitions (reps) 1 Comments Stair Climbing Comments 2 sets PT-Balance Assessment Sitting Balance and Reactions Static Sitting Balance Ability Normal Dynamic Sitting Balance Ability Good Standing Balance and Reactions Static Standing Balance Ability Fair Dynamic Standing Balance Ability Fair Device Used crutches M5 PT-IP Objective Assessments Start: 12/06/21 15:10 Freq: NEEDED Status: Active Protocol: Document 12/06/21 13:15 AB (Rec: 12/06/21 15:43 AB [id number]) Orientation Orientation/Cognition Level of Alertness Alert Orientation Place,Situation Language Function Ability Omani as Second Language Safety Awareness Decreased Safety Awareness Gross Range of Motion Lower Extremity ROM Assessment Right Impaired Impairments R ankle not tested: with soft cast on Strength Lower Extremity Strength Assessment Right Impaired Hip 4+/5 Knee 4+/5 Ankle not tested Sensation Assessment Sensation Gross Sensation WNL Muscle Tone Muscle Tone WNL Yes M6 PT-IP Treatment Start: 12/06/21 15:10 Freq: NEEDED Status: Active Protocol: Document 12/06/21 13:15 AB (Rec: 12/06/21 15:43 AB [email or web address]) Physical Therapy Treatment Education Education Provided Precautions,Weight Bearing Status,Safety M7 PT-IP Assessment and Plan Start: 12/06/21 15:10 Freq: NEEDED Status: Active Protocol: Document 12/06/21 13:15 AB (Rec: 12/06/21 15:43 AB [email or web address]) PT Summary Assessment and Plan Potential Rehabilitation Potential Fair Status of Condition at Evaluation Evolving Summary Impairments Pain,ROM,Strength,Balance, Coordination,Cognition,Bed Mobility,Transfers,Gait, Activity Tolerance Assessment Summary pt requiring SBA to [facility] with ambulation using bilateral axillary crutches. pt plans to go back to [place] into another hospital to address ankle fracture for sx. educated pt on safety and use of crutches. educated on technique to get into the truck safely but will need assistance with all tasks. Goals Bed Mobility Goal Independent Transfer Goal Independent,Crutches Gait Goal Independent,Crutches Gait Distance 200 Days to Meet Goals 5 Frequency of Treatment Frequency Of Treatment Once a Day Treatment Plan Physical Therapy Treatment Plan Bed Mobility Training,Transfer Training,Gait Training, Therapeutic Exercise,Balance Retraining,Discharge Planning, Hot or Cold Pack,Neuromuscular Re-ed,Coordination Retraining Weight Bearing Status Weight Bearing Status Non-Weight Bearing Allowed Weight Bearing Amount (enter % RLE NWB or #) (%) Recommendations To Nursing Amount of Assist Needed 1 Person Assist Discharge Recommendations Other Discharge Recommendations plans to transfer to another hospital Transportation Needs at Discharge Wheelchair/Cabulance
--- NOTE | 2021-12-06 13:29 | CM.DANOTE ---
DCP/Assessment: Reviewed chart. Patient is a 51yr old male patient admitted to [facility] under OBS status with right ankle fracture. No PCP listed. Patient resides in [place]. Met with patient this AM explained role. 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 Placed call to Jenniffer and she reports that patient and family would like patient to be discharged today. Family arranging to have friend/Wilbert Dye take flight, rent car, and be at [facility] early evening. The plan is for patient to travel via truck with friend back to [place]. Patient prefers to have surgery and further treatment at home. Provider aware and will write discharge orders. Scripts completed and given to nursing to attempt to have delivered by [facility] prior to the time they close. In addition, copy of records made and RN and weatherstrip machine operator instructed to have patient sign medical release of information. Patient requesting records because he will need them upon arrival in [place] for surgery and continued treatment. RN and provider updated on above. 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 He was scheduled to return to [place] this afternoon. Patient has notified needed individuals. Friend/Wilbert coming to drive patient back to [place] in truck. Patient's spouse very involved and is main contact. P: D/C today once friend arrives. Patient has crutches and plans to return to [place] RASHIDA. JAUN Discharge Planning/Care Management CM Discharge Assessment Start: 12/06/21 13:12 Freq: Status: Active Protocol: Document 12/06/21 13:12 JAUN (Rec: 12/06/21 13:29 JAKE [id number]) Discharge Planning Assessment Assigned Marine Oiler DESIREE Ortiz Contact Information Jenniffer (spouse) ph# [phone]. Advance Directives? No History Provided By Patient,Family Member,Medical Record Prior Living Arrangements House Household Members spouse,children Type of transporation used prior to Drives own vehicle admit Independent with ADL's No: Patient currently with right foot fracture. Caregiver for Another Yes: Family in [place]. DME Already Rented / Owned Crutches Barriers to Discharge No Discharge Plan Home Transportation Arrangement Family/Friend to provide transport (Wilbert Dye). He is arriving from [place] this evening. Referrals Initiated None needed Review Status In Process Next Review Type Continued Stay Review
--- NOTE | 2021-12-06 13:53 | DIET.CONS2 ---
Dietary Inpatient Consultation Note Admission Date: 12/06/2021 05:10 Pt to d/c home to [place] for surgery. Pt not appropriate for weight loss counselling at this time due to acute nature of injury and stress of managing transport. Diet: 12/06/21 Breakfast General (Regular) Diet Diet Modifications: Nutrition Percent Meal Consumed 100% 12/06/21 08:33 Electronically Signed by: Margaret Villa 12/06/21 13:53 Clinical Dietitian [address] [address]
--- NOTE | 2021-12-06 15:06 | PC.NURSE ---
Pt med at 0740 for discomfort w/good relief. SpO2 98% RA Hard splint to right lower leg intact CMS ++ IVF infusing as per MD orders. Pt will be discharging this evening w/ride back home to [place] Call light w/in reach, pt calls appropriately for needs.
== END 2021-12-06 19:45 | disposition home or self-care (01) ==
LOC: ED 04:48 → AC 05:11
PROVIDERS: Admitting Provider Nurse Practitioner Family; Emergency Provider Emergency Medicine; Referring Provider Emergency Medicine; Visit Provider Nurse Practitioner Family
DX: S82.841A Displaced bimalleolar fracture of right lower leg, initial encounter for closed fracture (principal); S82.441A Displaced spiral fracture of shaft of right fibula, initial encounter for closed fracture; W01.0XXA Fall on same level from slipping, tripping and stumbling without subsequent striking against object, initial encounter; Y93.89 Activity, other specified; Y92.9 Unspecified place or not applicable; Y99.0 Civilian activity done for income or pay; F17.210 Nicotine dependence, cigarettes, uncomplicated; Z20.822 Contact with and (suspected) exposure to COVID-19
CPT/HCPCS: 71045; 73610; 73630; 73700; 80053; 83880; 85025; 85610; 87635; 96372; 96374; 96375; 97162; 97530; 99284; C9803; G0378; J1170; J1650; J1885